=== PATIENT | male | born 1995 | race Caucasian/White ===

== ENCOUNTER 2020-06-23 11:23 | Emergency (ER) | payer BC, SELFPAY ==
[2020-06-23 12:11] VITALS: BP 99/55; PULSE 95; RESP 18; TEMP 38.7; O2SAT 100; BMI 26.4
--- NOTE | 2020-06-23 12:22 | HMH.EDUTC ---
[facility] [place] Disposition Clinical Impression: Fever in adult Otitis media Qualifiers: Otitis media type: unspecified Laterality: right Qualified Code(s): H66.91 - Otitis media, unspecified, right ear Disposition: Home, Self-Care Condition on Discharge: Good Instructions: Acetaminophen (Alternative Therapy), DI for Fever (Symptom) -- Adult, Ibuprofen, Amoxicillin, Preventing the Spread of Coronavirus Discharge Instructions Additional Instructions: *Monitor Temp, Over the counter Motrin or Tylenol as directed/as needed Tylenol every 4 hours and Motrin every 6 hours (as long as your family doctor has told you that you can take it) for fever or pain. and straight to ER if unable to lower temp less than 101.0 after medication given as directed on the package *Warm salt water gargles may help to soothe the throat *Throat Lozenges *Warm fluids like tea with honey may help to soothe the throat *Sleep elevated *Humidifier/Vaporizer Take medication as prescribed Your throat swab was sent for culture. Those results are typically sent to your primary care. Be sure to follow up in 2-3 days with your family doctor/primary care physician if no improvement so they can review those result and treat if necessary. If you don?t have a primary care doctor, I recommend you get one but in the mean time, you will have to return to a walk in clinic Follow up IMMEDIATELY for new or worsening symptoms or no Noticeable improvement over the next 48-72 hours. 911 for difficulty breathing or swallowing You were tested for today for COVID19 your test result should be back in the next 24-48 hours, you may call to the [facility] to see if your test results are back in the next 48 hours [phone] [facility] hours are 9am-9pm You was given a handout with instructions for Self Quarantine and Self isolation for while you wait on test results and what to do if they are positive If you are positive the Health Dept will be contacting you also Prescriptions: Amoxicillin [Amoxicillin 875MG Tab] 875 mg PO Q12H #20 tab Transmission Status: Received by [facility] Ondansetron [Zofran 4mg ODT] 4 mg PO TIDP PRN #10 tab PRN Reason: Nausea Transmission Status: Received by [facility] Referrals: PCP,No [Primary Care Provider] - As needed Forms: Work/School Release Time of Disposition: 12:50 Medical Decision Making - Marco A Inquiry Pt receiving controlled substance: No Marco A was queried for this patient: No Vital Signs: 06/23/20 12:11 06/23/20 12:38 Temperature 101.7 F H 99.9 F H Temperature Source Oral Oral Pulse Rate [Radial] 95 H Respiratory Rate 18 Blood Pressure [Right Arm] 99/55 L Blood Pressure Mean [Right Arm] 69 Blood Pressure Source [Right Arm] Automatic Cuff Blood Pressure Position [Right Arm] Sitting 02 Sat by Pulse Oximetry 100 Oxygen Delivery Method Room Air - Lab Data Lab results reviewed: Yes: I reviewed the patient's lab results. Orders (Tests/Meds): ED MEDICATIONS Discontinued Medications Generic Name Dose Route Start Last Admin Trade Name Freq PRN Reason Stop Dose Admin Acetaminophen 650 mg 06/23/20 12:14 06/23/20 12:18 Acetaminophen 325mg Tab PO 06/23/20 12:15 650 mg ONCE ONE Administration Ibuprofen 400 mg 06/23/20 12:14 06/23/20 12:18 Ibuprofen 400 Mg Tablet PO 06/23/20 12:15 400 mg ONCE ONE Administration Ondansetron HCl 4 mg 06/23/20 12:23 06/23/20 12:28 Ondansetron 4mg Odt SL 06/23/20 12:24 4 mg ONCE ONE Administration ORDERS Category Date Time Status Covid-19 Nasal PCR Sendout Stat Lab 06/23/20 12:17 Ordered Medical Decision Narrative: After Motrin and Tylenol patient states that he is feeling better but still having some pain and pressure in his right ear States that nausea is now gone and no longer having chills Patient educated on Motrin and Tylenol as directed to help control fever and body aches [facility] [place] HPI - General Stated compl
[2020-06-23 12:38] VITALS: TEMP 37.7
[2020-06-23 13:12] VITALS: BP 139/74; PULSE 89; RESP 20; TEMP 37.2; O2SAT 100
[2020-06-23 14:41] LABS: UTC Strep Screen (Rapid) Negative (Negative)
[2020-06-23 14:42] LABS: UTC Influenza A Antigen Negative (Negative); UTC Influenza B Antigen Negative (Negative)
[2020-06-24 08:58] LABS: Covid-19 Nasal PCR Sendout UK Not Detected
== END 2020-06-23 13:12 | disposition home or self-care (01) ==
PROVIDERS: Emergency Provider Nurse Practitioner
DX: Z20.828 Contact with and (suspected) exposure to other viral communicable diseases (principal); H66.91 Otitis media, unspecified, right ear; R50.9 Fever, unspecified
CPT/HCPCS: 87804; 87880; 99202; U0003